=== PATIENT | female | born 1950 | race Caucasian/White ===

== ENCOUNTER 2025-10-07 06:44 | Day surgery (SDC) | payer MEDICAID ==
[~2025-10-07] VITALS: Ht 157.5 cm; Wt 69.1 kg
[2025-10-07] MEDS ORDERED: SODIUM CHLORIDE 0.9% 1,000 ML ONE (07:19)
[2025-10-07] MEDS: SODIUM CHLORIDE 0.9% 1,000 ML IV ONE (07:56)
[2025-10-07] MEDS ORDERED: FentaNYL CITRATE PF 100 MCG/2 ML VIAL ONE (08:13)
[2025-10-07] MEDS ORDERED: MIDAZOLAM HCL 2 MG/2 ML VIAL ONE (08:13)
[2025-10-07] MEDS ORDERED: CLON-595 PO (08:38)
[2025-10-07] MEDS ORDERED: CALC-1038 PO (08:38)
[2025-10-07] MEDS ORDERED: BISO5TAB33 PO (08:38)
[2025-10-07] MEDS ORDERED: MAGN100T PO (08:38)
[2025-10-07] MEDS ORDERED: HYDR50TA36 PO (08:38)
[2025-10-07] MEDS ORDERED: AMLO-257 PO (08:38)
[2025-10-07] MEDS ORDERED: CLOP75TA83 PO (08:38)
[2025-10-07] MEDS ORDERED: ATOR40TA28 PO (08:38)
[2025-10-07] MEDS ORDERED: LOSA-382 PO (08:38)
[2025-10-07] MEDS ORDERED: FLUT1BLS15 IH (08:38)
[2025-10-07 09:30] VITALS: PULSE 100; RESP 16; O2SAT 100
[2025-10-07] MEDS ORDERED: LIDOCAINE 2% 11 ML JELLY ONE (12:00)
[2025-10-07] MEDS ORDERED: BENZOCAINE 20% 50 MCG/SPRAY 57 GM ONE (12:00)
[2025-10-07] MEDS ORDERED: ALBUTEROL SULFATE 2.5 MG/0.5 ML NEB SOLUTION NEB ONE (12:00)
[2025-10-07] MEDS ORDERED: LIDOCAINE 4% 50 ML SOLUTION ONE (12:00)
== END 2025-10-07 13:20 | disposition home or self-care (01) ==
LOC: SURGERY 06:44
PROVIDERS: ATTEND Internal Medicine Critical Care Medicine
DX: J38.4 Edema of larynx (principal); B37.0 Candidal stomatitis; J98.11 Atelectasis; R05.3 Chronic cough; R06.2 Wheezing
CPT/HCPCS: 31623; 87206; 87101; 87220; 87070; 88108; 31624; 94640; 71045; 87015; J3010; J2250; J2919; J7030; J7613; Z7610